=== PATIENT | male | born 1970 | race African-American/Black ===

== ENCOUNTER 2021-02-27 22:39 | Emergency (ER) | payer OTHER, SELFPAY ==
--- NOTE | 2021-02-27 23:16 | EDPHYS ---
Physician Documentation [facility] Name: Kareem Agrawal Age: 50 yrs Sex: Male : 1970 Arrival Date: 02/27/2021 Time: 22:41 Bed 17 Private MD: JANIYA Physician Lucas Nolan HPI: 02/27 23:00 This 50 yrs old Black Male presents to ER via Law Enforcement with complaints of mh7 Possible Overdose. 23:00 The patient presents to the emergency department with a possible overdose. Context: mh7 Method: the patient has a confirmed or suspected ingestion, Trazodone, Time: just prior to arrival, today, Extent: it is unknown what amount the patient ingested, the OD/poisoning occurred at at home, and was witnessed by family, daughter, Psychiatric history: the patient has a known psychiatric disorder, bipolar disorder, Previous OD/poisoning history: none. Associated signs and symptoms: Pertinent negatives: anxiety, apnea, auditory hallucinations, burning of skin, decreased level of consciousness, depression, diaphoresis, diarrhea, dizziness, incontinence, loss of consciousness, nausea, palpitations, shortness of breath, tearfulness, visual hallucinations, vomiting. Severity of symptoms: At their worst the symptoms were moderate today, in the emergency department the symptoms have improved moderately. Patient states that he was playing a joke on family and took several tablets of his old trazodone from 2011 and put them in his mouth. He states that he spit them out. His family called 911 and police came to scene and placed in the STACY for patient to be evaluated and brought him to the ER. He states that police did find the pills that he spit out at the scene. He denies any suicidal or homicidal ideation. He denies any auditory or visual hallucinations. . Historical: - Allergies: 22:50 NKDA; sj1 - PMHx: 22:50 High Cholesterol; Hypertension; Diabetes mellitus; Bipolar disorder; sj1 - Immunization history:: Client reports having NOT received the Covid vaccine. - Social history:: Smoking status: Patient reports the use of cigarette tobacco products, smokes one-half pack cigarettes per day, Patient uses alcohol, claims drinking about a 6 pack/day. ROS: 23:00 Constitutional: Negative for fever, chills, and weight loss, Eyes: Negative for injury, mh7 pain, redness, and discharge, ENT: Negative for injury, pain, and discharge, Neck: Negative for injury, pain, and swelling, Cardiovascular: Negative for chest pain, palpitations, and edema, Respiratory: Negative for shortness of breath, cough, wheezing, and pleuritic chest pain, Abdomen/GI: Negative for abdominal pain, nausea, vomiting, diarrhea, and constipation, Back: Negative for injury and pain, : Negative for injury, bleeding, discharge, and swelling, MS/Extremity: Negative for injury and deformity, Skin: Negative for injury, rash, and discoloration, Neuro: Negative for headache, weakness, numbness, tingling, and seizure, Psych: Negative for depression, anxiety, suicide ideation, homicidal ideation, and hallucinations, Allergy/Immunology: Negative for hives, rash, and allergies, Endocrine: Negative for neck swelling, polydipsia, polyuria, polyphagia, and marked weight changes, Hematologic/Lymphatic: Negative for swollen nodes, abnormal bleeding, and unusual bruising. Exam: 23:00 Constitutional: This is a well developed, well nourished patient who is awake, alert, mh7 and in no acute distress. Head/Face: Normocephalic, atraumatic. Eyes: Pupils equal round and reactive to light, extra-ocular motions intact. Lids and lashes normal. Conjunctiva and sclera are non-icteric and not injected. Cornea within normal limits. Periorbital areas with no swelling, redness, or edema. Neck: Trachea midline, no thyromegaly or masses palpated, and no cervical lymphadenopathy. Supple, full range of motion without nuchal rigidity, or vertebral point tenderness. No Meningismus. Chest/axilla: Normal chest wall appearance and motion. Nontender with no deformity. No lesions are appreciated. Cardiovascular: Regular rate and rhythm with a normal S1 and S2. No gallops, murmurs, or rubs. Normal PMI, no JVD. No pulse deficits. Respiratory: Lungs have equal breath sounds bilaterally, clear to auscultation and percussion. No rales, rhonchi or wheezes noted. No increased work of breathing, no retractions or nasal flaring. Abdomen/GI: Soft, non-tender, with normal bowel sounds. No distension or tympany. No guarding or rebound. No evidence of tenderness throughout. Back: No spinal tenderness. No costovertebral tenderness. Full range of motion. Skin: Warm, dry with normal turgor. Normal color with no rashes, no lesions, and no evidence of cellulitis. MS/ Extremity: Pulses equal, no cyanosis. Neurovascular intact. Full, normal range of motion. Neuro: Awake and alert, GCS 15, oriented to person, place, time, and situation. Cranial nerves II-XII grossly intact. Motor strength 5/5 in all extremities. Sensory grossly intact. Cerebellar exam normal. Normal gait. Psych: Awake, alert, with orientation to person, place and time. Behavior, mood, and affect are within normal limits. Vital Signs: 22:41 BP 145 / 114 RA Sitting (auto/reg); Pulse 125; Resp 18; Temp 98.0(O); Pulse Ox 99% on sj1 R/A; Weight 129.27 kg (R); Height 6 ft. 4 in. (193.04 cm) (R); Pain 0/10; 22:41 Body Mass Index 34.69 (129.27 kg, 193.04 cm) [facility] MDM: 23:18 Differential diagnosis: Ingestion/exposure to Trazodone polypharmacy, over medication. [facility] Data reviewed: vital signs, nurses notes. Refusal of service: The patient/guardian displays adequate decision making capability and despite a detailed discussion of alternatives, benefits, risks, and consequences refuses: all lab tests. ED course: Patient declined any testing and eloped from the ED. Police called by nursing staff for patient leaving the ED prior to completion of evaluation.. 23:21 Patient medically screened. [facility] Administered Medications: No medications were administered Disposition Summary: 02/27/21 23:15 Eloped Disposition: after being seen by provider bb Reason: (see nurse's notes) bb Signatures: Genesis Krueger RN RN bb Lucas Nolan MD MD [facility] Karime Virk RN RN 1
--- NOTE | 2021-02-27 23:16 | ER ---
Nurse's Notes [facility] Name: Kareem Agrawal Age: 50 yrs Sex: Male : 1970 Arrival Date: 02/27/2021 Time: 22:41 Bed 17 Private MD: Diagnosis: Presentation: 02/27 22:41 Chief complaint: Patient states: Daughter called PD for possible overdose 10-15 tabs of sj1 trazadone 100mg. Pt states he was playing around with his family. no prior SI attempts. Pt reports spitting the pills out. PD witnessed about 10-15 pills on the ground. Pt states that the Trazadone is from 2011 when he was in half-way. 71 tabs in bottle upon arrival. Coronavirus screen: Vaccine status: Patient reports being unvaccinated. Ebola Screen: Patient negative for fever greater than or equal to 101.5 degrees Fahrenheit, and additional compatible Ebola Virus Disease symptoms Patient denies exposure to infectious person. Patient denies travel to an Ebola-affected area in the 21 days before illness onset. Initial Sepsis Screen: Does the patient meet any 2 criteria? No. Patient's initial sepsis screen is negative. Does the patient have a suspected source of infection? No. Patient's initial sepsis screen is negative. Risk Assessment: Do you want to hurt yourself or someone else? Other: possible overdose 10-15. Denies SI. Pt states "I was playing". Onset of symptoms was February 27, 2021 at 22:00. 22:41 Method Of Arrival: Law Enforcement: [place] [id number] 22:41 Acuity: ABISAI 2 sj1 Triage Assessment: 22:50 General: Appears in no apparent distress. Behavior is anxious, Smells of alcohol. Pain: sj1 Denies pain. EENT: No deficits noted. Neuro: No deficits noted. Cardiovascular: No deficits noted. Respiratory: No deficits noted. GI: No deficits noted. : No deficits noted. Derm: No deficits noted. Musculoskeletal: No deficits noted. Historical: - Allergies: 22:50 NKDA; sj1 - PMHx: 22:50 High Cholesterol; Hypertension; Diabetes mellitus; Bipolar disorder; sj1 - Immunization history:: Client reports having NOT received the Covid vaccine. - Social history:: Smoking status: Patient reports the use of cigarette tobacco products, smokes one-half pack cigarettes per day, Patient uses alcohol, claims drinking about a 6 pack/day. Screenin:51 Abuse screen: Denies threats or abuse. Denies injuries from another. Nutritional sj1 screening: No deficits noted. Tuberculosis screening: No symptoms or risk factors identified. Fall Risk None identified. Assessment: 22:59 Reassessment: Pt anxious to leave. States he needs to smoke a cigarette. Pt also states sj1 "all of this is unnecessary and he does not want blood drawn.' Pt alert and oriented, gait steady. NADN. ABCs intact.Plan of care / policy discussed with patient. pt pacing around the room. General: Appears in no apparent distress. Behavior is anxious, uncooperative, Smells of alcohol. Pain: Denies pain. Neuro: No deficits noted. Cardiovascular: No deficits noted. Respiratory: No deficits noted. GI: No deficits noted. : No deficits noted. EENT: No deficits noted. Derm: No deficits noted. Musculoskeletal: No deficits noted. 23:04 Reassessment: STACY placed in the chart. sj1 23:10 Reassessment: Pt refusing care. MD and closing manager aware and at beside discussing STACY. Pt sj1 states you can call the police and walks out. PD notified by ZANE. 71 tabs of Trazadone given to ZANE Hurtado. 23:10 Reassessment: Dr Nolan at bedside for discussion and evaluation of pt. Pt is bb noncompliant refused care and left the ED. PD notified. 23:27 Reassessment: notified by PD that PD would have to be notified of pt's departure, bb PD notified. Vital Signs: 22:41 BP 145 / 114 RA Sitting (auto/reg); Pulse 125; Resp 18; Temp 98.0(O); Pulse Ox 99% on sj1 R/A; Weight 129.27 kg (R); Height 6 ft. 4 in. (193.04 cm) (R); Pain 0/10; 22:41 Body Mass Index 34.69 (129.27 kg, 193.04 cm) sj1 ED Course: 22:41 Patient arrived in ED. tt3 22:50 Triage completed. sj1 22:50 Arm band placed on left wrist. sj1 22:51 Patient has correct armband on for positive identification. Bed in low position. Call sj1 light in reach. 22:51 No provider procedures requiring assistance completed. sj1 22:56 Lucas Nolan MD is Attending Physician. Nani Administered Medications: No medications were administered Outcome: 23:15 Patient left the ED. bb Signatures: Genesis Krueger RN RN bb Lucas Nolan MD MD mh7 Eros Hernandez 3 Karime Virk RN RN sj1
[2021-02-27 23:21] VITALS: BP 145/114; TEMP 98; O2SAT 99
[2021-02-27 23:38] LABS: Urine Blood 1+ (Negative); Urine Glucose Negative (Negative); Urine Protein 2+ (Negative); Urine Specific Gravity <=1.005 (1.005-1.030); Urine pH 5.5 (5.0-7.0)
== END 2021-02-27 23:15 | disposition left against medical advice (07) ==
LOC: ER 22:39
DX: T43.211A Poisoning by selective serotonin and norepinephrine reuptake inhibitors, accidental (unintentional), initial encounter (principal); F31.9 Bipolar disorder, unspecified; F17.210 Nicotine dependence, cigarettes, uncomplicated
CPT/HCPCS: 81003; 99282

== ENCOUNTER 2021-12-02 13:02 | Emergency (ER) | payer OTHER ==
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
--- NOTE | 2021-12-02 14:34 | EDPHYS ---
Physician Documentation [facility] Name: Kareem Agrawal Age: 51 yrs Sex: Male : 1970 Arrival Date: 12/02/2021 Time: 13:34 Bed 9 Private MD: ED Physician Krishna Thomson HPI: 12/02 14:00 This 51 yrs old Black Male presents to ER via Ambulatory with complaints of Suture jh7 Removal. 14:00 The patient has sutures on the right jaw. Previous treatment: the care was rendered at [facility] another emergency department, [facility], Treatment type: The patient's original treatment included sutures. Patient presents for suture removal. States he had a laceration repaired [address] [facility]. Also states that his right upper molar has been bothering him.. Historical: - Allergies: 13:58 NKDA; ss - PMHx: 13:58 Bipolar disorder; diabetes mellitus; High Cholesterol; Hypertension; ss - Immunization history:: Last tetanus immunization: up to date. - Social history:: Smoking status: Patient reports the use of cigarette tobacco products, smokes one-half pack cigarettes per day. Vital Signs: 14:02 BP 133 / 87; Pulse 88; Resp 16; Temp 98.8(TE); Pulse Ox 100% on R/A; ss MDM: 14:06 Patient medically screened. [facility] Administered Medications: 14:48 Drug: Ketorolac 60 mg Route: IM; Site: right deltoid; ss 15:00 Follow up: Response: No adverse reaction; Medication administered at discharge. Disposition Summary: 12/02/21 14:33 Discharge Ordered Location: Home [facility] Problem: [facility] Symptoms: have improved [facility] Condition: Stable [facility] Diagnosis - Encounter for removal of sutures [facility] - Possible Dental Abscess [facility] Followup: [facility] - With: Private Physician - When: 2 - 3 days - Reason: Recheck today's complaints Discharge Instructions: - Discharge Summary Sheet [facility] - Dental Abscess [facility] - How to Change Your Wound Dressing [facility] - Suture Removal, Care After [facility] Forms: - Medication Reconciliation Form [facility] - Thank You Letter [facility] Prescriptions: - Augmentin 875-125 mg Oral Tablet - take 1 tablet by ORAL route every 12 hours for 10 days; 20 tablet; Refills: 0, [facility] Product Selection Permitted - Naprosyn 500 mg Oral Tablet - take 1 tablet by ORAL route 2 times per day take with food; 30 tablet; Refills: jh7 0, Product Selection Permitted Signatures: Rosemarie Fiore, HASEEB RN ss Yany Wilson, [employer] jh7
[2021-12-02] MEDS ORDERED: KETOROLAC 30 MG/ML INJ ONE (14:49)
[2021-12-02 15:09] VITALS: BP 133/87; TEMP 98.8; O2SAT 100
== END 2021-12-02 15:01 | disposition home or self-care (01) ==
LOC: ER 13:02
DX: Z48.02 Encounter for removal of sutures (principal)